=== PATIENT | female | born 1955 | race Caucasian/White ===

== ENCOUNTER 2019-08-08 01:22 | Emergency (ER) | payer BC ==
[~2019-08-08] VITALS: Ht 160 cm; Wt 55.3 kg
[2019-08-08] MEDS ORDERED: BENAZEPRIL HCL20 MG PO (01:38)
[2019-08-08] MEDS ORDERED: VITAMIN C1000 MG PO (01:38)
[2019-08-08] MEDS ORDERED: ASA81BEC PO (01:38)
[2019-08-08] MEDS ORDERED: CALCIUM500 MG PO (01:39)
[2019-08-08] MEDS ORDERED: VITAMIN E1000 UNIT PO (01:40)
[2019-08-08] MEDS ORDERED: BIOTIN1000 MCG PO (01:40)
[2019-08-08] MEDS ORDERED: VITAMIN D325 MCG PO (01:40)
[2019-08-08] MEDS ORDERED: NORCO 5-325 TA1 EAC1 PO (01:55)
[2019-08-08 02:15] VITALS: BP 172/97
== END 2019-08-08 02:10 | disposition home or self-care (01) ==
LOC: ER 01:22
DX: M54.12 Radiculopathy, cervical region (principal); F17.210 Nicotine dependence, cigarettes, uncomplicated